=== PATIENT | female | born 1965 | race Native Hawaiian/Other Pacific Islander ===

== ENCOUNTER 2021-04-09 09:39 | Outpatient (CLI) | payer BC | END 2021-04-09 19:03 | disposition home or self-care (01) | LOC: RESP 09:39 | PROVIDERS: ATTEND Nurse Practitioner Family | DX: R07.89 Other chest pain (principal) ==

== ENCOUNTER → 2021-04-10 | Outpatient (CLI) | payer BC | LOC: NM 08:22 | PROVIDERS: ATTEND Nurse Practitioner Family | DX: R07.89 Other chest pain (principal) | CPT/HCPCS: A9500 ==

== ENCOUNTER 2021-04-11 10:18 | Outpatient (CLI) | payer BC | END 2021-04-11 20:12 | disposition home or self-care (01) | LOC: RESP 10:18 | PROVIDERS: ATTEND Nurse Practitioner Family | DX: G56.03 Carpal tunnel syndrome, bilateral upper limbs (principal); G56.23 Lesion of ulnar nerve, bilateral upper limbs | CPT/HCPCS: 95885; 95911 ==

== ENCOUNTER 2022-03-11 09:16 | Outpatient (CLI) | payer BC ==
[2022-03-11 09:48] LABS: PLATELET COUNT 252 K/uL (152-353)
== END 2022-03-11 21:34 | disposition home or self-care (01) ==
LOC: RAD 09:16
PROVIDERS: ATTEND Nurse Practitioner Family
DX: R07.81 Pleurodynia (principal)
CPT/HCPCS: 36415; 80053; 82150; 83690; 85027

== ENCOUNTER 2022-12-15 08:41 | Outpatient (CLI) | payer BC | END 2022-12-15 18:52 | disposition home or self-care (01) | LOC: RAD 08:41 | PROVIDERS: ATTEND Nurse Practitioner Family | DX: S00.33XA Contusion of nose, initial encounter (principal); Y92.89 Other specified places as the place of occurrence of the external cause ==